=== PATIENT | female | born 1970 | race Caucasian/White ===

== ENCOUNTER 2018-02-10 10:39 | Inpatient (IN) | payer SELFPAY ==
[2018-02-10 17:12] VITALS: BP 170/89
[2018-02-10] MEDS ORDERED: WELLBUTRIN100 MG PO (18:34)
[2018-02-10] MEDS ORDERED: LISINOPRIL20 MG PO (18:35)
[2018-02-10] MEDS ORDERED: VITAMIN D2000 UNI1 PO (18:36)
[2018-02-10] MEDS ORDERED: GABAPENTIN300 MG PO ×2 (18:37→18:38)
[2018-02-10] MEDS ORDERED: LEXAPRO20 MG PO (18:37)
[2018-02-10] MEDS ORDERED: HYDROCHLOROTHIA25 MG PO (18:38)
[2018-02-10] MEDS ORDERED: MELOXICAM15 MG PO (18:39)
[2018-02-10] MEDS ORDERED: SYNTHROID88 MCG PO (18:40)
[2018-02-10] MEDS ORDERED: BACTRIM,SEPT1 TABLET PO (18:41)
[2018-02-11 07:40] VITALS: BP 172/89
[2018-02-11] MEDS ORDERED: NEURONTIN300 MG PO (10:14)
[2018-02-11] MEDS ORDERED: WELLBUTRIN XL300 MG PO (10:25)
[2018-02-11 16:49] VITALS: BP 130/65
[2018-02-12 07:49] VITALS: BP 121/61
[2018-02-12 16:29] VITALS: BP 97/52
[2018-02-13 08:08] VITALS: BP 126/69
[2018-02-13 16:02] VITALS: BP 116/71
[2018-02-14 07:35] VITALS: BP 126/62
[2018-02-14 16:28] VITALS: BP 109/60
[2018-02-15 07:48] VITALS: BP 111/54
[2018-02-15 16:05] VITALS: BP 94/51
[2018-02-16 09:12] VITALS: BP 101/56
[2018-02-16 15:11] VITALS: BP 109/58
[2018-02-17 07:35] VITALS: BP 107/59
[2018-02-17 15:16] VITALS: BP 110/60
[2018-02-18 08:08] VITALS: BP 90/52
[2018-02-18] MEDS ORDERED: VENLAFAXINE HC150 M1 PO (09:50)
[2018-02-18] MEDS ORDERED: TRAZODONE HCL100 MG PO (09:50)
[2018-02-18 09:55] VITALS: BP 118/57
== END 2018-02-18 15:20 | disposition home or self-care (01) | DRG 885 ==
LOC: 1WEST 10:39 → ENRESERV 10:41 → 1WEST 16:30
DX: F33.2 Major depressive disorder, recurrent severe without psychotic features (principal); R45.851 Suicidal ideations
CPT/HCPCS: 97150 GO; 97165 GO; 97530 GO; Q0177